=== PATIENT | female | born 1950 | race African-American/Black ===

== ENCOUNTER 2022-08-08 15:34 | Emergency (ER) | payer MEDICARE, OTHER ==
[~2022-08-08] VITALS: Ht 157.5 cm; Wt 63.0 kg
[2022-08-08] MEDS ORDERED: HYDR-3980 PO (16:04)
[2022-08-08] MEDS ORDERED: METH-807 PO (16:04)
--- NOTE | 2022-08-08 16:48 | NUR ---
PT SEEN AND EVALUATED BY DR ZARCO.
[2022-08-08 16:49] VITALS: BP 128/85
== END 2022-08-08 16:49 | disposition home or self-care (01) ==
LOC: ER 15:34
DX: G89.29 Other chronic pain (principal); M54.9 Dorsalgia, unspecified; Z76.0 Encounter for issue of repeat prescription
CPT/HCPCS: A4663

== ENCOUNTER 2022-10-12 00:07 | Emergency (ER) | payer MEDICARE, OTHER ==
[~2022-10-12] VITALS: Ht 157.5 cm; Wt 63.0 kg
[~2022-10-12 00:07] MED LIST: HYDR-3980 PO; METH-807 PO
[2022-10-12] MEDS ORDERED: METO25TA6 PO (01:46)
[2022-10-12] MEDS ORDERED: AMLO10TA59 PO ×2 (01:47→01:58)
[2022-10-12] MEDS ORDERED: METO-356 PO (01:58)
[2022-10-12] MEDS ORDERED: ACET1TAB23 PO (01:58)
--- NOTE | 2022-10-12 02:18 | NUR ---
Patient discharged to home in stable condition. Written and verbal after care instructions given. Patient verbalizes understanding of instructions. Stressed follow up or return to ER for worsening s/s. Patient was wheeled out via wheelchair.
[2022-10-12 04:09] VITALS: BP 148/90; TEMP 98.3; O2SAT 100
== END 2022-10-12 02:20 | disposition home or self-care (01) ==
LOC: ER 00:09
DX: G89.29 Other chronic pain (principal); M54.50 Low back pain, unspecified; I10 Essential (primary) hypertension; Z76.0 Encounter for issue of repeat prescription; Z88.8 Allergy status to other drugs, medicaments and biological substances; Z79.899 Other long term (current) drug therapy
CPT/HCPCS: A4663